=== PATIENT | female | born 1970 | race African-American/Black ===

== ENCOUNTER → 2021-10-21 | Outpatient (CLI) | payer OTHER ==
[~2021-10-21] MED LIST: CYMBALTA20 MG PO; DIOVAN HCT 1601 EAC1 PO; HYDROCODON-ACE1 EAC9 PO; LYRICA100 MG PO; TIZANIDINE HCL4 M1 PO
== END | disposition home or self-care (01) ==
LOC: RAD 10:44 → ENDO 10:44 → EDSTATUS 12:00
PROVIDERS: ATTEND Internal Medicine Gastroenterology
DX: R13.10 Dysphagia, unspecified (principal); K21.9 Gastro-esophageal reflux disease without esophagitis; Z53.8 Procedure and treatment not carried out for other reasons; Z01.810 Encounter for preprocedural cardiovascular examination; Z01.812 Encounter for preprocedural laboratory examination; Z20.822 Contact with and (suspected) exposure to COVID-19
CPT/HCPCS: 0223U; 36415 ×2; 81025; 84702; 93005